=== PATIENT | female | born 1985 | race Caucasian/White ===

== ENCOUNTER 2022-04-22 13:30 | Emergency (ER) | payer OTHER ==
[2022-04-22 14:04] LABS: HEMOGLOBIN 11.9 gm/dl (12.3-15.3); RED BLOOD COUNT 4.28 M/UL (4.00-5.10); WHITE BLOOD COUNT 5.9 K/UL (4.5-11.0)
[2022-04-22 14:19] LABS: BUN/CREATININE RATIO 14 (0-10)
[2022-04-22] MEDS ORDERED: MIRALAX 119 GR119 GM GT (16:19)
== END 2022-04-22 16:34 | disposition home or self-care (01) ==
LOC: ER1 13:30
PROVIDERS: Nurse Practitioner
DX: K59.00 Constipation, unspecified (principal); F17.200 Nicotine dependence, unspecified, uncomplicated
CPT/HCPCS: 80053; 80076; 81001; 83605; 83690; 85025; 93005; 96374; 99284; J1885; Q9967